=== PATIENT | female | born 1970 | race Caucasian/White ===

== ENCOUNTER 2017-05-20 19:53 | Emergency (ER) | payer SELFPAY ==
[~2017-05-20] VITALS: Ht 170.2 cm; Wt 89.3 kg
[2017-05-20 19:57] VITALS: BP 138/87
[2017-05-20] MEDS ORDERED: ZIPRASIDONE 20 MG INJ IM ONE (20:30)
[2017-05-20] MEDS ORDERED: LORazepam 1MG TABLET PO ONE (20:30)
[2017-05-20 20:42] LABS: SALICYLATE LEVEL 3.6 mg/dL (2.8-20.0)
[2017-05-20 20:43] LABS: ACETAMINOPHEN < 2 mcg/mL (10-30)
== END 2017-05-20 20:41 | disposition left against medical advice (07) ==
LOC: ED 20:35
DX: F41.1 Generalized anxiety disorder (principal); Z79.899 Other long term (current) drug therapy
CPT/HCPCS: 36415; 80307; 80329; 99284; G0480